=== PATIENT | male | born 1990 | race American Indian/Alaskan Native ===

== ENCOUNTER 2016-07-10 14:27 | Emergency (ER) | payer MEDICAID, OTHER ==
[2016-07-10 14:55] VITALS: TEMP 98.5
--- NOTE | 2016-07-10 16:44 | C.PDOC ---
History Of Present Illness 25 yo obese male c/o lower back pain that started while shoveling snow at 130 pm today. pt sts he heard a pop in lower back, and now having a lot of pain that he can't describe and difficulty walking due ot the pain. pt did not take anything any home for pain. pain does not radiate. denies any saddle anesthesia , no numbness or tingling, denies bladder and bowel incontinence and retention. Time Seen by Provider: 07/10/16 15:34 Chief Complaint (Nursing): Back Pain History Per: Patient History/Exam Limitations: no limitations Onset/Duration Of Symptoms: Hrs (3) Current Symptoms Are (Timing): Still Present Quality Of Discomfort: Unable To Describe Previous Symptoms: None Associated Symptoms: denies: Incontinence, New Weakness, New Numbness Exacerbating Factor(s): Movement Recent travel outside of the [place]: No Past Medical History Reviewed: Historical Data, Nursing Documentation, Vital Signs Vital Signs: Last Vital Signs Temp 98.5 F 07/10/16 14:53 Pulse 69 07/10/16 18:24 Resp 17 07/10/16 18:24 BP 124/71 07/10/16 18:24 Pulse Ox 97 07/10/16 23:17 - Medical History PMH: Asthma Surgical History: No Surg Hx Family History: States: Unknown Family Hx - Social History Hx Tobacco Use: No Hx Alcohol Use: No Hx Substance Use: Yes - Immunization History Hx Tetanus Toxoid Vaccination: Yes Hx Influenza Vaccination: No Hx Pneumococcal Vaccination: No Review Of Systems Constitutional: Negative for: Fever, Chills Cardiovascular: Negative for: Chest Pain Respiratory: Negative for: Cough, Shortness of Breath Gastrointestinal: Negative for: Nausea, Vomiting, Abdominal Pain Neurological: Negative for: Weakness, Numbness Physical Exam - Physical Exam Appears: Non-toxic, No Acute Distress Skin: Normal Color, Warm, Dry Head: Atraumatic, Normacephalic Chest: Symmetrical, No Deformity, No Tenderness Cardiovascular: Rhythm Regular, No Murmur Back: Normal Inspection, No Vertebral Tenderness, Decreased ROM, Paraspinal Tenderness (bilateral lumbar area) Extremity: Normal ROM, No Tenderness, No Pedal Edema, No Calf Tenderness Neurological/Psych: Oriented x3, Normal Speech, Normal Cognition, Normal Motor, Normal Sensation ED Course And Treatment O2 Sat by Pulse Oximetry: 97 - Other Rad X-Ray - LS Spine X-Ray: Viewed By Me, Read By Radiologist Interpretation: PROCEDURE: Radiographs of the Lumbar Spine. HISTORY: low back pain. COMPARISON: None available. FINDINGS: BONES: Alignment appears satisfactory. No acute displaced fracture identified. DISC SPACES: Unremarkable. OTHER FINDINGS: None. IMPRESSION: No acute displaced fracture or subluxation identified. Medical Decision Making Medical Decision Making: pt still reporting discomfort after toradol, is able to bend over to put on pants, and shoes. muscle relaxant ordered and pt will get rx for muscle relaxant. Disposition Counseled Patient/Family Regarding: Studies Performed, Diagnosis, Need For Followup, Rx Given - Disposition Disposition: HOME/ ROUTINE Disposition Time: 18:13 Condition: GOOD Additional Instructions: Avoid heavy lifting. Apply cold compress for affected area for first 24 hours, then warm compresses. When taking muscle relaxants, do not operate machinery or work. Take Ibuprofen every 6 hours with food. Follow up with your PMD in 1- 2 days. Prescriptions: Cyclobenzaprine [Cyclobenzaprine HCl] 10 mg PO TID #9 tab Ibuprofen [Motrin] 600 mg PO QID #30 tab Forms: General Discharge Instructions, Work Excuse - Clinical Impression Clinical Impression: Lumbar sprain
--- NOTE | 2016-07-10 17:20 | RAD ---
PROCEDURE: Radiographs of the Lumbar Spine. HISTORY: low back pain COMPARISON: None available. FINDINGS: BONES: Alignment appears satisfactory. No acute displaced fracture identified. DISC SPACES: Unremarkable. OTHER FINDINGS: None. IMPRESSION: No acute displaced fracture or subluxation identified.
[2016-07-10 18:25] VITALS: BP 124/71; PULSE 69; RESP 17
[2016-07-10 23:17] VITALS: O2SAT 97
== END 2016-07-10 18:26 | disposition home or self-care (01) ==
LOC: C.ER 14:27
DX: S33.5XXA Sprain of ligaments of lumbar spine, initial encounter (principal); Y93.H1 Activity, digging, shoveling and raking; Y92.414 Local residential or business street as the place of occurrence of the external cause
CPT/HCPCS: 72100; 96372; 99284; J1885

== ENCOUNTER 2017-07-29 02:01 | Emergency (ER) | payer SELFPAY ==
[2017-07-29 02:13] VITALS: BMI 48.4
[2017-07-29 02:16] VITALS: RESP 20
[2017-07-29] MEDS ORDERED: Sodium Chloride 0.9% 1,000 ML IV ONE (02:38)
--- NOTE | 2017-07-29 02:41 | C.PDOC ---
History Of Present Illness 26 y/o male presents to the ED complaining of epigastric pain for the past few days. Associated with nausea. No vomiting. Denies any dysuria or diarrhea. Time Seen by Provider: 07/29/17 02:35 Chief Complaint (Nursing): Abdominal Pain History Per: Patient History/Exam Limitations: no limitations Onset/Duration Of Symptoms: Days Current Symptoms Are (Timing): Still Present Past Medical History Reviewed: Historical Data, Nursing Documentation, Vital Signs Vital Signs: Last Vital Signs Temp 98.5 F 07/29/17 04:00 Pulse 87 07/29/17 04:00 Resp 20 07/29/17 04:00 BP 141/83 07/29/17 04:00 Pulse Ox 98 07/29/17 04:00 - Medical History PMH: Asthma, Sleep Apnea Surgical History: No Surg Hx Family History: States: Unknown Family Hx - Social History Hx Tobacco Use: No Hx Alcohol Use: No Hx Substance Use: Yes - Immunization History Hx Tetanus Toxoid Vaccination: Yes Hx Influenza Vaccination: No Hx Pneumococcal Vaccination: No Review Of Systems Except As Marked, All Systems Reviewed And Found Negative. Constitutional: Negative for: Fever Gastrointestinal: Positive for: Nausea, Abdominal Pain. Negative for: Vomiting , Diarrhea Genitourinary: Negative for: Dysuria Physical Exam - Physical Exam Appears: Non-toxic, No Acute Distress Skin: Normal Color, Warm, Dry Head: Atraumatic, Normacephalic Eye(s): bilateral: Normal Inspection, PERRL, EOMI Oral Mucosa: Moist Neck: Normal ROM, Supple Chest: Symmetrical Cardiovascular: Rhythm Regular, No Murmur Respiratory: Normal Breath Sounds, No Accessory Muscle Use Gastrointestinal/Abdominal: Soft, Tenderness (mild tenderness to epigastric area ), No Guarding, Other (obese abdomen) Extremity: Bilateral: Atraumatic, Normal Color And Temperature, Normal ROM Neurological/Psych: Oriented x3, Normal Speech ED Course And Treatment - Laboratory Results Result Diagrams: 07/29/17 02:44 07/29/17 02:44 ECG: Interpreted By Me, Viewed By Me ECG Rhythm: Sinus Rhythm ECG Interpretation: Normal, No Acute Changes Interpretation Of ECG: NSR, normal tracings. Rate From EC O2 Sat by Pulse Oximetry: 95 (RA) Pulse Ox Interpretation: Normal Medical Decision Making Medical Decision Making: Impression: Abdominal pain Time: 02:38 Initial Plan: * EKG * Lipase * Troponin I * CMP * CBC * NSS IV fluids * Carafate 1 gm PO * Pepcid 20 mg IV * Reevaluation Disposition Counseled Patient/Family Regarding: Diagnosis - Disposition Referrals: [facility] [Outside] Disposition: HOME/ ROUTINE Disposition Time: 03:42 Condition: STABLE Prescriptions: Famotidine [Pepcid] 20 mg PO BID #30 tab Sucralfate [Carafate] 1 gm PO BID #20 tab Instructions: Gastritis, Ulcer and Gastritis Diet Forms: [employer] (Grenadian) - POA Present On Arrival: None - Clinical Impression Clinical Impression: Abdominal pain, Gastritis and duodenitis - Scribe Statement The provider has reviewed the documentation as recorded by the Scribe (Carrie Xiong) Provider Attestation: All medical record entries made by the Scribe were at my direction and personally dictated by me. I have reviewed the chart and agree that the record accurately reflects my personal performance of the history, physical exam, medical decision making, and the department course for this patient. I have also personally directed, reviewed, and agree with the discharge instructions and disposition.
[2017-07-29 02:47] LABS: BASO # 0.1 K/uL (0.0-0.2); BASO % 0.5 % (0.0-2.0); EOS # 0.2 K/uL (0.0-0.7); EOS % 1.9 % (0.0-4.0); HEMOGLOBIN 14.3 g/dL (12.0-18.0); LYMPH # 2.8 K/uL (1.0-4.3); LYMPH % 25.3 % (20.0-40.0); MEAN CELL VOLUME 85.3 fL (80.0-94.0); MEAN CORPUSCULAR HEMOGLOBIN 29.6 pg (27.0-31.0); MEAN CORPUSCULAR HGB CONC 34.7 g/dL (33.0-37.0); MEAN PLATELET VOLUME 7.3 fL (7.2-11.7); MONO # 0.9 K/uL (0.0-0.8); NEUT # 7.2 K/uL (1.8-7.0); NEUT % 64.3 % (50.0-75.0); RBC 4.84 Mil/uL (4.40-5.90); RED CELL DISTRIBUTION WIDTH 13.6 % (11.5-14.5); WHITE BLOOD COUNT 11.2 K/uL (4.8-10.8)
[2017-07-29] MEDS ORDERED: Sodium Chloride 0.9% 1,000 ML ONE (02:48)
[2017-07-29 03:01] LABS: ALB/GLOB RATIO 1.2 (1.0-2.1); ALBUMIN 4.4 g/dL (3.5-5.0); ALT/SGPT 43 U/L (21-72); AST/SGOT 31 U/L (17-59); BLOOD UREA NITROGEN 14 mg/dL (9-20); CALCIUM 9.4 mg/dl (8.6-10.4); GFR AFRICAN-AMERICAN > 60; GFR NON-AFRICAN AMERICAN > 60; LIPASE 74 U/L (23-300)
[2017-07-29 04:01] VITALS: BP 141/83; PULSE 87; TEMP 98.5
[2017-07-29 05:23] VITALS: O2SAT 95
--- NOTE | 2017-08-01 10:26 | CARD ---
APPROVED REPORT EKG Measurement Heart [id number] <Conclusion> Normal sinus rhythm Normal ECG
== END 2017-07-29 04:05 | disposition home or self-care (01) ==
LOC: C.ER 02:01
DX: K29.70 Gastritis, unspecified, without bleeding (principal); K29.80 Duodenitis without bleeding; R10.13 Epigastric pain
CPT/HCPCS: 80053; 83690; 84484; 85025; 96361; 96374; 99284; J7040

== ENCOUNTER 2017-11-24 09:48 | Emergency (ER) | payer OTHER ==
[2017-11-24 09:48] VITALS: BMI 48.4
[2017-11-24] MEDS ORDERED: Sodium Chloride 0.9% 1,000 ML IV ONE (10:13)
--- NOTE | 2017-11-24 10:20 | C.PDOC ---
History Of Present Illness 27-year-old male presents to the ED with complaints of crampy generalized abdominal pain that began 3 days ago. Associated with multiple episodes of vomiting and watery non-bloody diarrhea. Otherwise he denies any fever, chills, dysuria, frequency, back pain, or blood in the urine/stool. There are no known sick contacts. Patient admits to eating a [employer] hamburger on Friday prior to onset of symptoms. He tried taking pepto bismol and drinking Gatorade without improvement. Time Seen by Provider: 11/24/17 10:09 Chief Complaint (Nursing): GI Problem History Per: Patient History/Exam Limitations: no limitations Onset/Duration Of Symptoms: Days Current Symptoms Are (Timing): Still Present Context: Food Location Of Pain/Discomfort: Diffuse Quality Of Discomfort: Cramping Past Medical History Reviewed: Historical Data, Nursing Documentation, Vital Signs Vital Signs: Last Vital Signs Temp 98.4 F 11/24/17 10:03 Pulse 80 11/24/17 10:03 Resp 20 11/24/17 10:03 BP 150/92 H 11/24/17 10:03 Pulse Ox 97 11/24/17 12:20 - Medical History PMH: Asthma, Sleep Apnea Other PMH: "heart murmur" Family History: States: Unknown Family Hx - Social History Hx Tobacco Use: No Hx Alcohol Use: Yes Hx Substance Use: Yes - Immunization History Hx Tetanus Toxoid Vaccination: Yes Hx Influenza Vaccination: No Hx Pneumococcal Vaccination: No Review Of Systems Except As Marked, All Systems Reviewed And Found Negative. Constitutional: Negative for: Fever, Chills, Sweats Gastrointestinal: Positive for: Nausea, Vomiting, Abdominal Pain, Diarrhea. Negative for: Hematochezia, Hematemesis Genitourinary: Negative for: Dysuria, Frequency, Incontinence, Hematuria Musculoskeletal: Negative for: Back Pain Physical Exam - Physical Exam Appears: Well, Non-toxic, No Acute Distress Skin: Warm, Dry, No Rash Head: Atraumatic, Normacephalic Eye(s): bilateral: Normal Inspection Oral Mucosa: Moist Neck: Normal ROM Chest: Symmetrical Cardiovascular: Rhythm Regular Respiratory: Normal Breath Sounds, No Rales, No Rhonchi, No Wheezing Gastrointestinal/Abdominal: Bowel Sounds (active), Soft, No Tenderness, No Guarding, No Rebound Extremity: Bilateral: Atraumatic, Normal Color And Temperature, Normal ROM Neurological/Psych: Oriented x3, Normal Speech Gait: Steady ED Course And Treatment - Laboratory Results Result Diagrams: 11/24/17 11:11 11/24/17 11:11 O2 Sat by Pulse Oximetry: 97 (RA) Pulse Ox Interpretation: Normal Medical Decision Making Medical Decision Making: Initial Impression: 27-year-old with abdominal pain, vomiting, and diarrhea Differential diagnoses include: Acute gastroenteritis, dehydration, pancreatitis , diverticulitis, urinary tract infection Plan: * CMP * CBC * Lipase * Urinalysis * IV fluids * 4 mg Zofran IV * 20 mg Pepcid IV * Reassessment Progress/Updates: Labs reviewed and discussed with patient. On re-assessment, the patient was sitting comfortably on stretcher watching videos on his cellphone. Discussed results with patient, and copy of report was provided. Abdomen remains soft, and patient is tolerating po. Patient feels comfortable going home. Patient given follow up instructions. Instructed to return to ER if symptoms worsen or new symptoms arise. Disposition Counseled Patient/Family Regarding: Diagnosis, Need For Followup, Rx Given - Disposition [facility]Outside[facility] Disposition: HOME/ ROUTINE Disposition Time: 12:42 Condition: STABLE Additional Instructions: Rx sent to [facility] Give fluids to prevent dehydration. Take Zofran as prescribed. Try low-fat diet with increase in fluids such as sport drink, gelatin. Try soup, rice, bread, crackers, cereal, bananas to help with diarrhea. Avoid high sugar foods or drinks (soda and juice) , fatty foods Prescriptions: Famotidine [Pepcid] 20 mg PO DAILY #20 tab Ondansetron ODT [Zofran ODT] 1 odt PO BID PRN #6 odt PRN Reason: Nausea/Vomiting Instructions: Viral Gastroenteritis, Adult (DC) Forms: [employer] (Lao) - POA Present On Arrival: None - Clinical Impression Clinical Impression: Gastroenteritis - PA / [employer] / Resident Statement MD/DO has reviewed & agrees with the documentation as recorded. - Scribe Statement The provider has reviewed the documentation as recorded by the Scribe (Carrie Xiong) All medical record entries made by the Scribe were at my direction and personally dictated by me. I have reviewed the chart and agree that the record accurately reflects my personal performance of the history, physical exam, medical decision making, and the department course for this patient. I have also personally directed, reviewed, and agree with the discharge instructions and disposition.
[2017-11-24] MEDS ORDERED: Sodium Chloride 0.9% 1,000 ML ONE (11:01)
[2017-11-24 11:18] LABS: BASO # 0.1 K/uL (0.0-0.2); BASO % 0.9 % (0.0-2.0); EOS # 0.3 K/uL (0.0-0.7); EOS % 2.6 % (0.0-4.0); LYMPH # 3.2 K/uL (1.0-4.3); LYMPH % 24.9 % (20.0-40.0); MEAN CELL VOLUME 86.9 fL (80.0-94.0); MEAN CORPUSCULAR HEMOGLOBIN 29.2 pg (27.0-31.0); MEAN CORPUSCULAR HGB CONC 33.6 g/dL (33.0-37.0); MEAN PLATELET VOLUME 7.7 fL (7.2-11.7); MONO # 0.9 K/uL (0.0-0.8); MONO % 6.9 % (0.0-10.0); NEUT # 8.2 K/uL (1.8-7.0); NEUT % 64.7 % (50.0-75.0); NRBC % 0.1 % (0.0-2.0); RBC 5.16 Mil/uL (4.40-5.90); RED CELL DISTRIBUTION WIDTH 13.9 % (11.5-14.5); WHITE BLOOD COUNT 12.7 K/uL (4.8-10.8)
[2017-11-24 11:29] LABS: ALB/GLOB RATIO 1.3 (1.0-2.1); ALBUMIN 4.3 g/dL (3.5-5.0); ALT/SGPT 39 U/L (21-72); AST/SGOT 19 U/L (17-59); BLOOD UREA NITROGEN 12 mg/dL (9-20); CALCIUM 9.5 mg/dl (8.6-10.4); GFR AFRICAN-AMERICAN > 60; GFR NON-AFRICAN AMERICAN > 60; LIPASE 128 U/L (23-300)
[2017-11-24 12:22] LABS: SQUAMOUS EPITHIAL < 1 /hpf (0-5); URINE BILIRUBIN NEGATIVE (NEGATIVE); URINE BLOOD NEGATIVE (NEGATIVE); URINE CLARITY Clear (Clear); URINE COLOR Yellow (YELLOW); URINE GLUCOSE (UA) NORMAL (Normal); URINE LEUKOCYTE ESTERASE NEG Leu/uL (Negative); URINE PROTEIN NEGATIVE (NEGATIVE); URINE UROBILINOGEN NORMAL mg/dL (0.2-1.0)
[2017-11-24 13:23] VITALS: RESP 18
[2017-11-24 13:27] VITALS: BP 142/92; PULSE 71; TEMP 98.7
[2017-11-24 15:02] VITALS: O2SAT 97
== END 2017-11-24 13:23 | disposition home or self-care (01) ==
LOC: C.ER 09:48
DX: K52.9 Noninfective gastroenteritis and colitis, unspecified (principal)
CPT/HCPCS: 80053; 81001; 83690; 85025; 96361; 96374; 96375; 99284; J2405; J7030

== ENCOUNTER 2018-05-10 21:28 | Emergency (ER) | payer OTHER ==
[2018-05-10 21:28] VITALS: BMI 48.4
[2018-05-10 21:38] VITALS: BP 140/91; PULSE 99; RESP 18; TEMP 98.7; O2SAT 98
--- NOTE | 2018-05-10 21:57 | C.PDOC ---
History Of Present Illness 27 yo M c/o right lower back pain that sometimes radiates down his back for 1.5 weeks. Patient states pain is worse w/movement. Patient denies bowel or bladder dysfunction, trauma, urinary symptoms, f/c, n/v, abdominal pain, weakness, paresthesias. Patent states he has been taking Aleve w/relief of symptoms but ran out 2 days ago. Time Seen by Provider: 05/10/18 21:44 Chief Complaint (Nursing): Back Pain History Per: Patient Severity: Moderate Past Medical History Reviewed: Historical Data, Nursing Documentation, Vital Signs Vital Signs: Last Vital Signs Temp 98.7 F 05/10/18 21:33 Pulse 99 H 05/10/18 21:33 Resp 18 05/10/18 21:33 BP 140/91 H 05/10/18 21:33 Pulse Ox 98 05/10/18 21:33 - Medical History PMH: Asthma, Sleep Apnea Family History: States: Unknown Family Hx - Social History Hx Tobacco Use: No Hx Alcohol Use: Yes Hx Substance Use: Yes - Immunization History Hx Tetanus Toxoid Vaccination: Yes Hx Influenza Vaccination: No Hx Pneumococcal Vaccination: No Review Of Systems Constitutional: Negative for: Fever, Weakness Respiratory: Negative for: Cough, Shortness of Breath Gastrointestinal: Negative for: Nausea, Vomiting, Abdominal Pain Genitourinary: Negative for: Dysuria, Frequency, Incontinence Musculoskeletal: Positive for: Back Pain Skin: Negative for: Rash Neurological: Negative for: Weakness, Numbness, Incoordination Physical Exam - Physical Exam Appears: Well Skin: Normal Color, Warm, Dry Gastrointestinal/Abdominal: Bowel Sounds, Soft, No Tenderness Back: Normal Inspection, No CVA Tenderness, No Vertebral Tenderness, No Muscle Spasm, Paraspinal Tenderness (right lumbar) Extremity: Normal ROM, No Tenderness, No Pedal Edema Neurological/Psych: Oriented x3, Normal Motor, Normal Reflexes Gait: Steady ED Course And Treatment O2 Sat by Pulse Oximetry: 98 Medical Decision Making Medical Decision Making: Pt presents as above, no neuro deficits. Plan [place], f/u clinic, RTED for new worsening or concerning symptoms. Pt stable for d/c, verbalized understanding, was given opportunity to ask questions. Disposition Counseled Patient/Family Regarding: Diagnosis, Need For Followup - Disposition Referrals: [facility] [Outside] [facility] [Outside] Disposition Time: 22:04 Condition: STABLE Prescriptions: Naproxen [Naprosyn] 500 mg PO BID PRN #30 tablet PRN Reason: Pain, Moderate (4-7) Instructions: Low Back Pain (DC) Forms: [employer] (Sinhala) - POA Present On Arrival: None - Clinical Impression Clinical Impression: Low back pain
[2018-05-10] MEDS ORDERED: Naproxen 550 mg Tab PO STA (21:58)
[2018-05-10] MEDS ORDERED: Naproxen 550 mg Tab PO ONE (22:00)
== END 2018-05-10 22:12 | disposition home or self-care (01) ==
LOC: C.ER 21:28 → SUPCPDRO 21:28 → C.ER 22:12
DX: M54.5 Low back pain (principal)

== ENCOUNTER 2018-05-27 12:06 | Emergency (ER) | payer OTHER ==
[2018-05-27 12:16] VITALS: BP 136/83; PULSE 84; RESP 18; TEMP 98.4; O2SAT 96; BMI 47.0
--- NOTE | 2018-05-27 12:31 | C.PDOC ---
History Of Present Illness Pt c/o low back pain radiating down RLE. Time Seen by Provider: 05/27/18 12:18 Chief Complaint (Nursing): Back Pain History Per: Patient Onset/Duration Of Symptoms: Days (about 3 weeks) Current Symptoms Are (Timing): Still Present Quality Of Discomfort: "Pain" Severity: Moderate Previous Symptoms: Back Pain, Prior Injury Exacerbating Factor(s): Movement, Sitting Additional History Per: Prior Records Past Medical History Reviewed: Historical Data, Nursing Documentation, Vital Signs Vital Signs: Last Vital Signs Temp 98.4 F 05/27/18 12:06 Pulse 84 05/27/18 12:06 Resp 18 05/27/18 12:06 BP 136/83 05/27/18 12:06 Pulse Ox 96 05/27/18 12:06 - Medical History PMH: Asthma, Sleep Apnea Family History: States: Unknown Family Hx - Social History Hx Tobacco Use: No Hx Alcohol Use: Yes Hx Substance Use: Yes (marijuan) - Immunization History Hx Tetanus Toxoid Vaccination: Yes Hx Influenza Vaccination: No Hx Pneumococcal Vaccination: No Review Of Systems Except As Marked, All Systems Reviewed And Found Negative. Constitutional: Negative for: Fever, Weakness Cardiovascular: Negative for: Chest Pain Respiratory: Negative for: Shortness of Breath Gastrointestinal: Negative for: Vomiting, Abdominal Pain Genitourinary: Negative for: Dysuria, Incontinence, Hematuria Musculoskeletal: Positive for: Back Pain (low). Negative for: Neck Pain Skin: Negative for: Rash Neurological: Positive for: Numbness (in RLE). Negative for: Seizures, Altered Mental Status Physical Exam - Physical Exam Appears: Non-toxic, No Acute Distress Skin: Normal Color, Warm, Dry, No Rash Head: Atraumatic, Normacephalic Eye(s): bilateral: PERRL, EOMI Neck: Normal ROM, Supple Gastrointestinal/Abdominal: Soft, No Tenderness, No Mass Back: No CVA Tenderness, Paraspinal Tenderness (lumbosacral) Extremity: Normal ROM, No Pedal Edema, No Calf Tenderness Extremity: Bilateral: Normal Color And Temperature Pulses: Right Dorsalis Pedis: Normal Neurological/Psych: Oriented x3, Normal Motor ED Course And Treatment O2 Sat by Pulse Oximetry: 96 Pulse Ox Interpretation: Normal Disposition Counseled Patient/Family Regarding: Diagnosis, Need For Followup, Rx Given - Disposition Referrals: [facility] [Outside] Disposition: HOME/ ROUTINE Disposition Time: 12:31 Condition: STABLE Additional Instructions: Follow up in the clinic within 1-2 weeks for further evaluation and treatment (including MRI of the back). Return to the ER if you develops abdominal pain, trouble urinating, weakness, worsening of symptoms or if you have any other concerns. Prescriptions: Cyclobenzaprine [Cyclobenzaprine HCl] 10 mg PO TID PRN #15 tab PRN Reason: Muscle Spasm Naproxen [Naprosyn] 1 tab PO BID PRN #25 tab PRN Reason: Pain Instructions: Radiculopathy (DC) - Clinical Impression Clinical Impression: Lumbar radiculopathy, right
== END 2018-05-27 12:51 | disposition home or self-care (01) ==
LOC: C.ER 12:06
DX: M54.16 Radiculopathy, lumbar region (principal)